=== PATIENT | male | born 1945 | race Caucasian/White ===

== ENCOUNTER 2018-04-23 09:46 | Day surgery (SDC) | payer MEDICARE, BC ==
[2018-04-23] MEDS ORDERED: PROPOFOL 10 MG/ML VIAL IV ONE (09:47)
[2018-04-23] MEDS ORDERED: PHENYLEPHRINE HCL 10 MG/ML VIAL IVP ONE (09:47)
[2018-04-23] MEDS ORDERED: LIDOCAINE 2% MDV (20MG/ML) 20ML VIAL IV ONE (09:47)
--- NOTE | 2018-04-24 10:30 | Operative Note ---
DATE OF SURGERY: 04/23/2018 OPERATION: COLONOSCOPY to the cecum with cold biopsy forceps polypectomy x2. INDICATION: Prior history of colon polyps. Patient also with family history of colon cancer in his father. He returns at this time for surveillance. ANESTHESIA: Intravenous sedation was administered by the department of anesthesiology and included Diprivan titrated to effect. PROCEDURE: Following informed consent from this alert individual including a discussion of the risks and benefits of the procedure and an opportunity for the patient to ask questions, the patient was in the left lateral decubitus position. A digital rectal examination was performed. No abnormalities were noted. Following this, the Olympus [id number] video colonoscope was inserted into the rectum without resistance. The rectal mucosa had a normal appearance with normal folds and distensibility. The colonoscope was advanced up through the colon to the level of the cecum. Throughout the bowel the mucosa appeared normal, the folds were normal, and the bowel was fairly well distensible. The cecum was defined by noting the appendiceal orifice and ileocecal valve. At the base of the cecum next to the appendiceal orifice, there was a diminutive 3 mm polyp noted which was removed with cold biopsy forceps. From this point, the colonoscope was then withdrawn. In the distal transverse colon, there was a second 3 mm polyp noted also removed with cold biopsy forceps. No other changes were appreciated. Retroflexion in the rectum was endoscopically normal. The instrument was removed. The patient tolerated the procedure well. The colon preparation was good. He was returned to the recovery area in stable condition. IMPRESSION: A 3 mm cecal polyp and 3 mm transverse colon polyp, each removed with cold biopsy forceps. No other changes noted. RECOMMENDATIONS: The patient was advised he should receive a copy of his pathology report at home in the next 2-3 weeks. If not, he was asked to call my office to review the results of testing today. Further recommendations will be forthcoming pending those results. Followup will also be with Dr. Hull. As always, thank you for allowing me to participate in the care of your patient. CC: LISS HULL MD, FACP [facility] [place] [facility]
== END 2018-04-23 11:15 | disposition home or self-care (01) ==
LOC: HOP 09:46
PROVIDERS: ATTEND Internal Medicine Gastroenterology
DX: Z12.11 Encounter for screening for malignant neoplasm of colon (principal); Z80.0 Family history of malignant neoplasm of digestive organs; Z86.010 Personal history of colon polyps; D12.3 Benign neoplasm of transverse colon; D12.0 Benign neoplasm of cecum; I50.9 Heart failure, unspecified; E78.00 Pure hypercholesterolemia, unspecified; I20.9 Angina pectoris, unspecified; G25.81 Restless legs syndrome; K21.9 Gastro-esophageal reflux disease without esophagitis
CPT/HCPCS: J2370

== ENCOUNTER 2019-02-10 18:14 | Emergency (ER) | payer MEDICARE, BC ==
--- NOTE | 2019-02-10 18:43 | Emergency Department Record ---
History of Present Illness - General Chief Complaint: Ankle/Foot Injury Stated Complaint: LT FOOT/ANKLE Time Seen by Provider: 02/10/19 18:21 Source: Patient Mode of Arrival: Ambulatory Limitations: No limitations - History of Present Illness Initial Comments: pt has had pain in his l foot for 3 days. he denies injuring it. it is painful to bear weight. Complaint: Foot injury Onset/Timin -: Days(s) Injury: Foot: Left Type of Injury: Unknown Place: Home Severity scale (1-10): 3 Improves With: Immobilization Worsens With: Movement, Weight bearing Associated Symptoms: Ambulatory - Related Data Previous Rx's Medication Instructions Recorded Hydrocodone/Acetaminophen [Mclean 1 tab PO Q6H PRN #20 tab 01/17/15 5mg/325mg] Ibuprofen [Motrin] 800 mg PO Q8H PRN #30 tab 01/17/15 Cephalexin [Keflex] 500 mg PO QID #40 cap 01/13/16 Allergies Allergy/AdvReac Type Severity Reaction Status Date / Time hydrocodone bitartrate Allergy Severe ALTERED Verified 06/08/15 11:54 [From Vicodin] MENTAL STATUS Travel Screening - Travel/Exposure Within Last 30 Days Have you traveled within the last 30 days?: No Review of Systems Reviewed: No additional complaints except as noted below Constitutional: Reports: As per HPI. Denies: Chills, Fever, Malaise, Night sweats, Weakness, Weight change Eyes: Reports: As per HPI. Denies: Eye discharge, Eye pain, Photophobia, Vision change ENT: Reports: As per HPI. Denies: Congestion, Dental pain, Ear pain, Epistaxis, Hearing loss, Throat pain Respiratory: Reports: As per HPI. Denies: Cough, Dyspnea, Hemoptysis, Stridor, Wheezes Cardiovascular: Reports: As per HPI. Denies: Arrhythmia, Chest pain, Dyspnea on exertion, Edema, Murmurs, Orthopnea, Palpitations, Paroxysmal nocturnal dyspnea, Rheumatic Fever, Syncope Endocrine: Reports: As per HPI. Denies: Fatigue, Heat or cold intolerance, Polydipsia, Polyuria Gastrointestinal: Reports: As per HPI. Denies: Abdominal pain, Constipation, Diarrhea, Hematemesis, Hematochezia, Melena, Nausea, Vomiting Genitourinary: Reports: As per HPI. Denies: Dysuria, Frequency, Hematuria, Incontinence, Retention, Testicular pain, Testicular mass, Urgency Musculoskeletal: Reports: As per HPI. Denies: Arthralgia, Back pain, Gout, Joint swelling, Myalgia, Neck pain Skin: Reports: As per HPI. Denies: Bruising, Change in color, Change in hair/nails, Lesions, Pruritus, Rash Neurological: Reports: As per HPI. Denies: Abnormal gait, Confusion, Headache, Numbness, Paresthesias, Seizure, Tingling, Tremors, Vertigo, Weakness Psychiatric: Reports: As per HPI. Denies: Anxiety, Auditory hallucinations, Depression, Homicidal thoughts, Suicidal thoughts, Visual hallucinations Hematological/Lymphatic: Reports: As per HPI. Denies: Anemia, Blood Clots, Easy bleeding, Easy bruising, Swollen glands Past Medical History - SOCIAL HISTORY Smoking Status: Former smoker - RESPIRATORY Hx Respiratory Disorders: Yes Hx Asthma: No Hx Bronchitis: No Hx COPD: Yes Hx Pneumonia: No Hx Sleep Apnea: Yes Hx of CPAP: Yes - CARDIOVASCULAR Hx Cardio Disorders: Yes Hx Abnormal EKG: Yes Hx Cardiac Cath: Yes Hx Chest Pain: Yes Hx CHF: Yes Hx Deep Vein Thrombosis: Yes Hx Edema: Yes Hx Heart Attack: No Hx Hypertension: No Hx Irregular Heartbeat: No Hx Palpitations: No Hx Coronary Artery Disease: Yes Hx Coronary Stent: Yes - NEURO Hx Neuro Disorders: Yes Hx Dizziness: Yes (occas with get up too quickly) Hx Headaches: No Hx of Migraines: No Hx Seizures: No - GI Hx GI Disorders: Yes Hx Abdominal Pain: No Hx Crohn's Disease: No Hx Diverticulitis: No Hx Reflux: Yes Hx Irritable Bowel: No Hx Liver Disease: No Hx Pancreatitis: No Hx of Polyps: Yes - Hx Genitourinary Disorders: Yes Hx Bladder Problem: No Hx Kidney Stones: Yes (kidney years ago) Hx Prostate Problems: Yes Hx Renal Disease: No - ENDOCRINE Hx Endocrine Disorders: No - MUSCULOSKELETAL Hx Musculoskeletal Disorders: Yes Hx Arthritis: Yes Hx Fibromyalgia: No Hx Gout: No - PSYCH Hx Psych Problems: No - HEMATOLOGY/ONCOLOGY Hx Hematology/Oncology Disorders: Yes Hx Anemia: No Hx Bruising: Yes (on plavix) Hx Cancer: Yes (skin CA top of head) Hx Blood Transfusions: No Comment:: "threw clots Colton surgery" Family Medical History Any Significant Family History?: Yes Hx Cancer: Mother Hx Heart Disease: Father, Brother/Sister Physical Exam - General General Appearance: Alert, Oriented x3, Cooperative, Mild distress - Head Head exam: Normal inspection - Eye Eye exam: Normal appearance, PERRL, EOMI Pupils: Normal accommodation - ENT ENT exam: Normal exam, Mucous membranes moist, Normal external ear exam, Normal orophraynx Ear exam: Normal external inspection. negative: External canal tenderness Nasal Exam: Normal inspection. negative: Discharge, Sinus tenderness Mouth exam: Normal external inspection, Tongue normal Teeth exam: Normal inspection. negative: Dental caries Throat exam: Normal inspection. negative: Tonsillar erythema, Tonsillar exudate - Neck Neck exam: Normal inspection, Full ROM. negative: Tenderness - Respiratory Respiratory exam: Normal lung sounds bilaterally. negative: Respiratory distress - Cardiovascular Cardiovascular Exam: Regular rate, Normal rhythm, Normal heart sounds - GI/Abdominal GI/Abdominal exam: Soft, Normal bowel sounds. negative: Tenderness - Rectal Rectal exam: Deferred - exam: Deferred - Extremities Extremities exam: Full ROM, Normal capillary refill, Tenderness (l foot) Image of Feet: 1 - tender 2 - tender - Back Back exam: Reports: Normal inspection, Full ROM. Denies: Muscle spasm, Rash noted, Tenderness - Neurological Neurological exam: Alert, CN II-XII intact, Normal gait, Oriented X3 - Psychiatric Psychiatric exam: Normal affect, Normal mood - Skin Skin exam: Dry, Intact, Normal color, Warm Course Vital Signs 02/10/19 18:18 Temperature 98.1 F Pulse Rate 83 Respiratory 20 Rate Blood Pressure 117/71 Pulse Ox 95 - Reevaluation(s) Reevaluation #1: 02/10/19 20:10 xrays neg Reevaluation #2: 02/10/19 20:12 pt feels better Medical Decision Making - Lab Data Result diagrams: 02/10/19 19:00 Disposition Disposition: Discharge Clinical Impression: Foot pain, left Disposition: Home, Self-Care Condition: (1) Good Instructions: Plantar Fasciitis (ED), Plantar Fasciitis Exercises (ED) Additional Instructions: follow up with family doctor and with shove up. ice and elevation. return sooner if worse Referrals: IZABELA JEONG [[email or web address]] - [facility] Specialty Clinics [Provider Group] Forms: Patient Portal Access Quality - Quality Measures Quality Measures: N/A - Blood Pressure Screening Does Patient Have Any of the Following: No Blood Pressure Classification: Normal BP Reading Systolic Measurement: 117 Diastolic Measurement: 71 Screening for High Blood Pressure: < Normal BP, F/U Not Required > [G8783]
[2019-02-10] MEDS: MORPHINE SULFATE 5 MG/ML VIAL IM ONE (18:52)
[2019-02-10 19:19] LABS: CREATININE 1.8 mg/dL (0.7-1.2)
--- NOTE | 2019-02-11 14:03 | RADIOLOGY REPORT ---
EXAM: LEFT FOOT, THREE VIEWS HISTORY: LATERAL FOOT PAIN BEGAN THREE DAYS AGO WITHOUT KNOWN INJURY. TECHNIQUE: Three views of the left foot were obtained. Comparison: None. Encounter: Initial. FINDINGS: No bone or joint abnormality is identified. Small vessel arterial calcifications are noted. IMPRESSION: UNREMARKABLE LEFT FOOT EXAMINATION. JOB NUMBER: [id number] MTDD
== END 2019-02-10 20:28 | disposition home or self-care (01) ==
LOC: ER 18:14
DX: M79.672 Pain in left foot (principal); J44.9 Chronic obstructive pulmonary disease, unspecified; Z87.891 Personal history of nicotine dependence; I50.9 Heart failure, unspecified
CPT/HCPCS: 80048; 84550; 85651; 96372; 99284